=== PATIENT | female | born 1985 | race American Indian/Alaskan Native ===

== ENCOUNTER 2016-07-11 03:05 | Inpatient (IN) | payer MEDICAID ==
[2016-07-11] MEDS ORDERED: STADOL IV PRN (03:26)
[2016-07-11] MEDS ORDERED: POLYCILLIN/NS 2 GM/100 ML 2 GM/100 ML BAG IV ONE ×2 (03:26→03:39)
[2016-07-11] MEDS ORDERED: BRETHINE SUB-Q PRN (03:39)
[2016-07-11] MEDS ORDERED: SUBLIMAZE IV PRN (03:39)
[2016-07-11] MEDS ORDERED: ePHEDrine SULFATE IV PRN ×2 (03:39→10:00)
[2016-07-11] MEDS ORDERED: BRETHINE IVP PRN (03:39)
[2016-07-11] MEDS ORDERED: MINERAL OIL PO PRN (03:39)
[2016-07-11] MEDS ORDERED: PHENERGAN PO PRN (03:39)
[2016-07-11] MEDS ORDERED: XYLOCAINE 2% INFILTRATI ONE (03:39)
[2016-07-11] MEDS ORDERED: ZOFRAN IV PRN (03:39)
--- NOTE | 2016-07-11 03:39 | History and Physical Report ---
History of Present Illness Date of examination: 07/11/16 (SROM) Date of admission: 07/11/16 03:05 Chief complaint: SROM @ 0210, clear fluid History of present illness: EDC Confirmation: 07/06/2016 Past History : 4 Term Births: 1 Premature Births: 0 Living Children: 1 Para: 1 Mult. Births: 0 Prev : 0 Prev. attempt? 0 Aborta: 2 Elect. Ab: 2 Spont. Ab: 0 Ectopics: 0 # 1 Delivery date: 10/12/2006 Weeks Gestation: 38 labor: no Delivery type: Anesthesia type: epidural Delivery location: [facility] Infant Sex: Male weight: 6.10 Name: Wander # 2 Delivery date: 2013 Weeks Gestation: 8 Delivery type: EAB # 3 Delivery date: 2014 Weeks Gestation: 7 Delivery type: EAB Past Medical History: Reviewed history from 04/26/2015 and no changes required: Hypertension Past Surgical History: Reviewed history from 06/09/2013 and no changes required: Negative Past Surgical History Past Medical History Abnormal PAP: negative YOBANI Exposure: negative Infertility: negative Uterine Anomaly: negative Uterine Surgery (not C/S): negative Other Gynecologic Problems: negative Social Hx: Patient is single Infection History Hx of STD: none HIV Risk Eval: low risk Hepatitis B Risk Eval: low risk Personal hx. of genital herpes: no Partner hx. of genital herpes: no Rash, Viral, or Febrile illness since last LMP? no Varicella/Chicken Pox Status: Previous Disease TB Risk: no Genetic History Congenital Heart Defect: Mom: no Dad: no Mis Disease: Mom: no Dad: no Thalassemia Mom: no Dad: no Neural Tube Defect Mom: no Dad: no Down's Syndrome Mom: no Dad: no Christiano-Sachs Mom: no Dad: no Sickle Cell Disease/Trait Mom: no Dad: no Hemophilia Mom: no Dad: no Muscular Dystrophy Mom: no Dad: no Cystic Fibrosis Mom: no Dad: no [place] Chorea Mom: no Dad: no Mental Retardation Mom: no Dad: no Fragile X Mom: no Dad: no Other Genetic/Chromosomal Disorder Mom: no Dad: no Child w/other defect Mom: no Dad: no Enviromental Exposures Xray Exposure: no Medication, drug, or alcohol use since LMP: no Chemical/Other Exposure: no Exposure to Cat Liter: no Hx of Parvovirus (Fifth Disease): no Occupational Exposure to Children: none Active Medications: None Current Allergies: No known allergies Past History Past Medical History: no pertinent history - Obstetrical History Expected Date of Delivery: 07/06/16 Actual Gestation: 40 Week(s) 5 Day(s) : 4 Para: 1 Hx # Term Pregnancies: 1 Number of Pregnancies: 0 Spontaneous Abortions: 0 Induced : 2 Medications and Allergies Allergies Allergy/AdvReac Type Severity Reaction Status Date / Time No Known Allergies Allergy Verified 02/06/16 10:21 Home Medications Medication Instructions Recorded Confirmed Last Taken Type No Known Home Medications [No 07/11/16 07/11/16 Unknown History Reported Home Medications] Active Meds: Active Medications Butorphanol Tartrate (Stadol) 2 mg IV Q2H PRN PRN Reason: Labor Pain Lactated Ringer's (Lactated Ringers) 1,000 mls @ 125 mls/hr IV DIRECT CESAR Ampicillin Sodium (Polycillin/Ns 2 Gm/100 Ml) 2 gm in 100 mls @ 100 mls/hr IV ONCE ONE Stop: 07/11/16 04:25 Ampicillin Sodium (Polycillin/Ns 1 Gm/50 Ml) 1 gm in 50 mls @ 100 mls/hr IV Q4HR CESAR PRN Reason: Protocol Review of Systems All systems: negative - Vital Signs Vital signs: Vital Signs Pulse Pulse Ox 108 H 99 07/11/16 03:06 07/11/16 03:06 Temp Pulse Resp BP Pulse Ox 110 H 98 07/11/16 03:31 07/11/16 03:31 - Physical Exam Breasts: Positive: normal Lungs: Positive: Clear to auscultation, Normal air movement Abdomen: Positive: normal appearance, soft Genitourinary (Female): Positive: normal external genitalia, normal perenium Vulva: both: normal Vagina: Positive: other (srom - clear) Uterus: Positive: normal size Anus/Rectum: Positive: normal perianal skin Extremities: Positive: normal - Obstetrical FHR: auscultation normal, category 1 Uterine Contraction Monitor Mode: External Cervical Dilatation: 3 Cervical Effacement Percentage: 50 station: -4 Uterine Tone Measurement Phase: Resting Results Result Diagrams: 07/11/16 03:00 All other labs normal. Assessment and Plan 30y/o admitted for SROM @ 40+5, GBS +. Orders in EMR. will start pit to augment if needed. 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
[2016-07-11] MEDS: LACTATED RINGERS 1,000 ML IV SCH ×3 (03:59→10:11)
[2016-07-11] MEDS ORDERED: LACTATED RINGERS 1,000 ML IV SCH ×2 (04:00→15:00)
[2016-07-11] MEDS ORDERED: PITOCin/NS 20 UNIT/1000ML DRIP 20 UNITS/1,000 ML BAG IV SCH ×3 (04:00→17:00)
[2016-07-11 04:31] LABS: Basophils % (Auto) 0.4 % (0.0-1.8); Eosinophils % (Auto) 0.6 % (0.0-4.3); Hematocrit 29.9 % (30.3-42.9); Hemoglobin 9.1 gm/dl (10.1-14.3); Mean Corpuscular HGB Conc 30 % (30-34); Mean Corpuscular Volume 75 fl (79-97); Platelet Count 253 K/mm3 (140-440); Red Blood Count 3.97 M/mm3 (3.65-5.03); Red Cell Distribution Width 18.9 % (13.2-15.2); White Blood Count 11.9 K/mm3 (4.5-11.0)
[2016-07-11 04:34] LABS: Mean Corpuscular Hemoglobin 23 pg (28-32)
[2016-07-11] MEDS ORDERED: PITOCin/NS 30 UNIT/500ML 30 UNITS/500 ML BAG IV SCH (06:00)
[2016-07-11] MEDS ORDERED: POLYCILLIN/NS 1 GM/50 ML 1 GM/50 ML BAG IV SCH (06:00)
--- NOTE | 2016-07-11 06:14 | Progress Note ---
Assessment and Plan Pt is very anxious about deliver. It has been 10 years since she delivered. Her first child weighed 6+ pounds. This baby's EFW is 8 pounds. Discussed pt's concerns. Pt is not request section. Explained we will watch labor progression and if any concerns will discuss with her. Pt agrees. "I want a normal delivery." Plan to start pitocin @ 0700 per protocol. Second dose of ampicillin due 0800. Re-eval as needed. Will make aware of pt's concerns. Subjective - Subjective Date of service: 07/11/16 (pt expressing concerns about "getting the baby out") Principal diagnosis: IUP @ 40w5d; SROM Patient reports: movement normal Objective - Vital Signs Vital Signs: Vital Signs - 12hr 07/11/16 07/11/16 07/11/16 03:05 03:06 03:11 Temperature 96.9 F L Pulse Rate 108 H 119 H Respiratory 18 Rate Blood Pressure 129/75 [Left Arm] O2 Sat by Pulse 98 99 98 Oximetry 07/11/16 07/11/16 07/11/16 03:16 03:21 03:26 Temperature Pulse Rate 110 H 104 H 109 H Respiratory Rate Blood Pressure [Left Arm] O2 Sat by Pulse 98 99 98 Oximetry 07/11/16 07/11/16 07/11/16 03:31 03:36 03:41 Temperature Pulse Rate 110 H 107 H 105 H Respiratory Rate Blood Pressure [Left Arm] O2 Sat by Pulse 98 99 98 Oximetry 07/11/16 07/11/16 07/11/16 03:46 03:51 03:56 Temperature Pulse Rate 102 H 101 H 103 H Respiratory Rate Blood Pressure [Left Arm] O2 Sat by Pulse 98 97 98 Oximetry 07/11/16 07/11/16 07/11/16 04:01 04:06 04:11 Temperature Pulse Rate 111 H 98 H 113 H Respiratory Rate Blood Pressure [Left Arm] O2 Sat by Pulse 98 98 98 Oximetry - Exam Breasts: deferred Cardiovascular: Regular rate Lungs: Normal air movement Abdomen: Present: normal appearance, soft. Absent: distention, tenderness Uterus: Present: normal FHR: auscultation normal, category 1 Uterine Contraction Monitor Mode: External Cervical Dilatation: 3 Cervical Effacement Percentage: 50 station: -4 Uterine Contraction Pattern: Irregular Uterine Contraction Intensity: Mild Extremities: edema Deep Tendon Reflex Grade: Normal +2 - Labs Labs: Abnormal Labs 07/11/16 03:00 WBC 11.9 H Hgb 9.1 L Hct 29.9 L MCV 75 L MCH 23 L RDW 18.9 H Lymph % (Auto) 10.5 L [place] % (Auto) 9.8 H [place] # 1.2 H Seg Neutrophils % 78.7 H Seg Neutrophils # 9.4 H Laboratory Results - last 24 hr 07/11/16 07/11/16 03:00 03:00 WBC 11.9 H RBC 3.97 Hgb 9.1 L Hct 29.9 L MCV 75 L MCH 23 L MCHC 30 RDW 18.9 H Plt Count 253 Lymph % (Auto) 10.5 L [place] % (Auto) 9.8 H Eos % (Auto) 0.6 Baso % (Auto) 0.4 Lymph # 1.3 [place] # 1.2 H Eos # 0.1 Baso # 0.0 Seg Neutrophils % 78.7 H Seg Neutrophils # 9.4 H Blood Type O POSITIVE Antibody Screen TNR LYDIA Antibody Screen Negative
[2016-07-11] MEDS: PITOCin/NS 30 UNIT/500ML 30 UNITS/500 ML BAG IV SCH ×5 (07:35→14:12)
--- NOTE | 2016-07-11 08:07 | Admit Criteria Form ---
Admission Criteria Documentation: OBSTETRIC AND GYNECOLOGIC DISEASE GRG Clinical Indications for Admission to Inpatient Care (Place 'X' for any and all applicable criteria): Hospital admission is needed for appropriate care of the patient because of 1 or more of the following (1)(2)(3): [ ]I. Hemodynamic instability, as indicated by 1 or more of the following (1)( 2)(3)(4)(5): [ ]a) Vital signs or other findings not as expected for chronic patient condition or baseline [ ]b) Instability indicated by 1 or more of the following: [ ]i) Hypotension [ ]ii) Symptomatic tachycardia unresponsive to treatment (eg, analgesia, fluids, sedation as indicated) [ ]iii) Inadequate perfusion indicated by 1 or more of the following: [ ]A. Lactic acidosis (greater than 2 mmol/ L) [ ]B. New abnormal capillary refill ( greater than 3 seconds) [ ]C. Reduced urine output [ ]D. New altered mental status [ ]iv) Orthostatic vital sign changes unresponsive to treatment (eg, fluids) [ ]v) Multiple IV fluid boluses required to maintain adequate blood pressure or perfusion [ ]vi) IV inotropic or vasopressor medication required to maintain adequate blood pressure or perfusion [ ]II. Obstetric infection requiring hospitalization indicated by 1 or more of the following(13)(14): [ ]a) Chorioamnionitis [ ]b) Endometritis (except mild endometritis) [ ]c) Pelvic abscess [ ]d) Peritonitis [ ]e) Septic pelvic thrombophlebitis [ ]III. Amniotic fluid or pulmonary embolism(4)(5)(6) [ ]IV. Suspected peritonitis or ectopic requiring monitoring beyond scope of 24 hours or observation care(7)(8) [ ]V. compromise requiring hospitalization indicated by ALL of the following(9)(10): [ ]a) compromise indicated by 1 or more of the following(11): [ ]i) Abnormal heart rate monitoring [ ]ii) Abnormal contraction stress test [ ]iii) Abnormal biophysical profile [ ]iv) Abnormal Doppler flow in vessels (ie, Doppler velocimetry) (12) [ ]b) Persistence of compromise indicators during evaluation and observation monitoring [ ]. Ovarian hyperstimulation syndrome requiring hospitalization[A] indicated by ALL of the following(15): [ ]a) Recent ovarian stimulation with gonadotropins, or evidence on ultrasound of spontaneous emergence of large number of ovarian follicles [ ]b) Evidence of severe ovarian hyperstimulation syndrome indicated by 1 or more of the following: [ ]i) Abdominal pain unresponsive to oral therapy [ ]ii) Acute respiratory distress syndrome [ ]iii) Electrolyte imbalance ( eg, hyponatremia, hyperkalemia) [ ]iv) Elevated liver enzymes [ ]v) Evidence of thromboembolism [ ]vi) Hemoconcentration (hematocrit greater than 45 % (0.45)) [ ]vii) Inability to maintain oral intake adequate to prevent hemoconcentration [ ]viii) Marked hypotension from baseline (eg, SBP 20 mmHg below patients usual pressure) [ ]ix) Oliguria or anuria [ ]x) Ovarian torsion [ ]xi) Pleural or pericardial effusion on x-ray or echocardiogram [ ]xii) Rapid increase in serum creatinine to greater than 1.2 mg/dL (106 micromoles/L) or creatinine clearance less than 50 mL/min/1.73m2 (0.84 mL/ sec/1.73m2) [ ]xiii) Ruptured ovarian cyst with hemorrhage [ ]xiv) Severe abdominal pain or peritoneal signs [ ]xv) Tense ascites that cannot be managed with paracentesis in outpatient setting [ ]VII.Pelvic infection requiring hospitalization indicated by 1 or more of the following (16): [ ]a) Outpatient treatment has failed or is not appropriate (eg, inpatient monitoring required) [ ]b) Pelvic abscess [ ]c) Surgical emergency cannot be excluded (eg, rigid abdomen) [ ]d) Vomiting precluding outpatient and observation care management VIII. loss complications requiring inpatient medical treatment indicated by 1 or more of the following (4)(7)(9): [ ]a) Fever [ ]b) Peritonitis [ ]c) Sepsis [ ]d) Severe abdominal pain [ ]IX. or patient requiring monitoring for severe heart failure, pulmonary disease, or other comorbid condition (eg, peripartum cardiomyopathy) (4)(17) [X ]X. patient with rupture of membranes requiring hospitalization indicated by ANY ONE of the following: [ ]a) Chorioamnionitis, cloudy amniotic fluid, or other evidence of infection [X ]b) compromise or other need for monitoring (11) [ ]c) Gestation longer than 23 weeks and ANY ONE of the following: [ ]i) Abnormal (noncephalic) presentation [ ]ii) Inadequate home environment (eg, home too far from hospital, unable to rapidly return to hospital) [ ]d) Temperature greater than 100.4 degrees F (38 degrees C)( oral) [ ]e) Threatened labor requiring monitoring beyond scope (eg, over 24 hours) of observation Care [ ] XI. complications, including severe lacerations, infections, or retained placenta (19) [ ] XII.Uterine bleeding with high-risk features indicated by ANY ONE of the following (4): [ ]a) Active major hemorrhage (eg, hemorrhage) [ ]b) Coagulopathy with active bleeding [ ]c) Gestational trophoblastic disease (eg, molar ) (20 ) [ ]d) (longer than 23 weeks) and ANY ONE of the following: [ ]i) Pain [ ]ii) Placental abruption, known or suspected [ ]iii) Placenta accrete, known or suspected(21) [ ]iv) Placenta previa, known or suspected [ ]v) Vasa previa [ ]e) Severe anemia [ ]XIII. Obstetric or Gynecologic Disease, condition or symptom for which ANY ONE of the following: [ ]a) Emergency and observation care have failed or are not considered appropriate ( Also use General Criteria: Observation Care Criteria as appropriate) [ ]b) Presence of a General Admission Criteria or Pediatric General Admission Criteria The original [facility] content created by [facility] has been revised. The portions of the content which have been revised are identified through the use of italic text or in bold, and [facility] has neither reviewed nor approved the modified material.All other unmodified content is copyright [facility]. Please see references footnoted in the original [facility] edition 2016 Admission Criteria Met: Yes
[2016-07-11] MEDS: POLYCILLIN/NS 1 GM/50 ML 1 GM/50 ML BAG IV SCH ×2 (08:16→12:11)
[2016-07-11] MEDS ORDERED: ePHEDrine SULFATE ONE ×2 (09:40→15:19)
--- NOTE | 2016-07-11 09:46 | Anesthesia Consultation ---
Anesthesia Consult and Med Hx Date of service: 07/11/16 - Airway Anesthetic Teeth Evaluation: Good ROM Head & Neck: Adequate Mental/Hyoid Distance: Adequate Mallampati Class: Class II Intubation Access Assessment: Probably Good - Pre-Operative Health Status ASA Pre-Surgery Classification: ASA3 Proposed Anesthetic Plan: Epidural, Spinal - Pulmonary Hx Asthma: No COPD: No Hx Pneumonia: No - Cardiovascular System Hx Hypertension: No - Central Nervous System Hx Seizures: No Hx Psychiatric Problems: No - Endocrine Hx Renal Disease: No Hx End Stage Renal Disease: No Hx Hypothyroidism: No Hx Hyperthyroidism: Yes - Hematic Hx Anemia: No Hx Sickle Cell Disease: No - Other Systems Hx Alcohol Use: No Hx Obesity: Yes (Morbid obesity BMI 40.9)
[2016-07-11] MEDS ORDERED: fentaNYL-BUPIV 2 MCG/ML-0.125% 200 MCG/100 ML BAG EPIDURAL SCH (10:00)
[2016-07-11] MEDS ORDERED: NARCAN 2 MG/2 ML IV PRN (10:30)
[2016-07-11] MEDS ORDERED: NACL 0.9% 1000 ML 1,000 ML ONE (14:20)
[2016-07-11] MEDS ORDERED: REGLAN ONE (14:24)
[2016-07-11] MEDS ORDERED: BICITRA ONE (14:24)
[2016-07-11] MEDS ORDERED: ANCEF/STERILE WATER 2 GM/20 ML 2 GM/20 ML SYRINGE IV ONE (14:25)
[2016-07-11] MEDS ORDERED: PEPCID IV ONE ×2 (14:25→14:29)
[2016-07-11] MEDS ORDERED: REGLAN IV ONE (14:29)
[2016-07-11] MEDS ORDERED: BICITRA PO SCH (14:35)
--- NOTE | 2016-07-11 14:35 | Progress Note ---
Assessment and Plan intolerance to labor. Remote from delivery. here. Decision to go for section. SVE no chg. Pt consented. Risks discussed with pt and family. Subjective - Subjective Date of service: 07/11/16 (prolong decel; remote from delivery) Principal diagnosis: IUP @ 40w5d; SROM Patient reports: movement normal Objective - Vital Signs Vital Signs: Vital Signs - 12hr 07/11/16 07/11/16 07/11/16 03:05 03:06 03:11 Temperature 96.9 F L Pulse Rate 108 H 119 H Pulse Rate [ From Monitor] Respiratory 18 Rate Blood Pressure Blood Pressure 129/75 [Left Arm] O2 Sat by Pulse 98 99 98 Oximetry 07/11/16 07/11/16 07/11/16 03:16 03:21 03:26 Temperature Pulse Rate 110 H 104 H 109 H Pulse Rate [ From Monitor] Respiratory Rate Blood Pressure Blood Pressure [Left Arm] O2 Sat by Pulse 98 99 98 Oximetry 07/11/16 07/11/16 07/11/16 03:31 03:36 03:41 Temperature Pulse Rate 110 H 107 H 105 H Pulse Rate [ From Monitor] Respiratory Rate Blood Pressure Blood Pressure [Left Arm] O2 Sat by Pulse 98 99 98 Oximetry 07/11/16 07/11/16 07/11/16 03:46 03:51 03:56 Temperature Pulse Rate 102 H 101 H 103 H Pulse Rate [ From Monitor] Respiratory Rate Blood Pressure Blood Pressure [Left Arm] O2 Sat by Pulse 98 97 98 Oximetry 07/11/16 07/11/16 07/11/16 04:01 04:06 04:11 Temperature Pulse Rate 111 H 98 H 113 H Pulse Rate [ From Monitor] Respiratory Rate Blood Pressure Blood Pressure [Left Arm] O2 Sat by Pulse 98 98 98 Oximetry 07/11/16 07/11/16 07/11/16 07:24 07:25 07:36 Temperature 96.9 F L Pulse Rate 108 H 98 H Pulse Rate [ 108 H From Monitor] Respiratory 18 Rate Blood Pressure 121/73 123/75 Blood Pressure 121/73 [Left Arm] O2 Sat by Pulse Oximetry 07/11/16 07/11/16 07/11/16 07:38 07:43 07:48 Temperature Pulse Rate 95 H 90 91 H Pulse Rate [ From Monitor] Respiratory Rate Blood Pressure Blood Pressure [Left Arm] O2 Sat by Pulse 100 100 100 Oximetry 07/11/16 07/11/16 07/11/16 07:53 07:58 08:03 Temperature Pulse Rate 95 H 96 H 101 H Pulse Rate [ From Monitor] Respiratory Rate Blood Pressure Blood Pressure [Left Arm] O2 Sat by Pulse 100 100 100 Oximetry 07/11/16 07/11/16 07/11/16 08:08 08:13 08:18 Temperature Pulse Rate 90 92 H 79 Pulse Rate [ From Monitor] Respiratory Rate Blood Pressure Blood Pressure [Left Arm] O2 Sat by Pulse 99 97 97 Oximetry 07/11/16 07/11/16 07/11/16 08:23 08:28 08:33 Temperature Pulse Rate 92 H 83 85 Pulse Rate [ From Monitor] Respiratory Rate Blood Pressure Blood Pressure [Left Arm] O2 Sat by Pulse 99 100 100 Oximetry 07/11/16 07/11/16 07/11/16 08:38 08:43 08:48 Temperature Pulse Rate 79 82 84 Pulse Rate [ From Monitor] Respiratory Rate Blood Pressure Blood Pressure [Left Arm] O2 Sat by Pulse 100 100 100 Oximetry 07/11/16 07/11/16 07/11/16 08:53 08:58 09:03 Temperature Pulse Rate 86 85 86 Pulse Rate [ From Monitor] Respiratory Rate Blood Pressure Blood Pressure [Left Arm] O2 Sat by Pulse 100 100 100 Oximetry 07/11/16 07/11/16 07/11/16 09:08 09:13 09:48 Temperature Pulse Rate 91 H 91 H 95 H Pulse Rate [ From Monitor] Respiratory Rate Blood Pressure Blood Pressure [Left Arm] O2 Sat by Pulse 100 100 100 Oximetry 07/11/16 07/11/16 07/11/16 09:49 09:53 09:56 Temperature Pulse Rate 101 H 97 H 93 H Pulse Rate [ From Monitor] Respiratory Rate Blood Pressure 131/75 127/79 Blood Pressure [Left Arm] O2 Sat by Pulse 100 Oximetry 07/11/16 07/11/16 07/11/16 09:58 09:59 10:00 Temperature Pulse Rate 89 53 L 98 H Pulse Rate [ From Monitor] Respiratory Rate Blood Pressure 124/69 134/70 Blood Pressure [Left Arm] O2 Sat by Pulse 100 79 L Oximetry 07/11/16 07/11/16 07/11/16 10:02 10:03 10:04 Temperature Pulse Rate 91 H 92 H 92 H Pulse Rate [ From Monitor] Respiratory Rate Blood Pressure 134/74 135/78 Blood Pressure [Left Arm] O2 Sat by Pulse 99 Oximetry 07/11/16 07/11/16 07/11/16 10:06 10:08 10:10 Temperature Pulse Rate 91 H 96 H 94 H Pulse Rate [ From Monitor] Respiratory Rate Blood Pressure 126/72 131/73 121/74 Blood Pressure [Left Arm] O2 Sat by Pulse 97 Oximetry 07/11/16 07/11/16 07/11/16 10:12 10:13 10:14 Temperature Pulse Rate 100 H 96 H 92 H Pulse Rate [ From Monitor] Respiratory Rate Blood Pressure 123/73 126/69 Blood Pressure [Left Arm] O2 Sat by Pulse 99 Oximetry 07/11/16 07/11/16 07/11/16 10:16 10:18 10:20 Temperature Pulse Rate 96 H 95 H 91 H Pulse Rate [ From Monitor] Respiratory Rate Blood Pressure 130/74 127/74 125/71 Blood Pressure [Left Arm] O2 Sat by Pulse 99 Oximetry 07/11/16 07/11/16 07/11/16 10:22 10:23 10:24 Temperature Pulse Rate 91 H 94 H 91 H Pulse Rate [ From Monitor] Respiratory Rate Blood Pressure 129/73 127/72 Blood Pressure [Left Arm] O2 Sat by Pulse 100 Oximetry 07/11/16 07/11/16 07/11/16 10:26 10:28 10:32 Temperature Pulse Rate 111 H 96 H 100 H Pulse Rate [ From Monitor] Respiratory Rate Blood Pressure 129/70 Blood Pressure [Left Arm] O2 Sat by Pulse 98 62 L Oximetry 07/11/16 07/11/16 07/11/16 10:33 10:34 10:36 Temperature Pulse Rate 85 88 87 Pulse Rate [ From Monitor] Respiratory Rate Blood Pressure 119/58 121/57 Blood Pressure [Left Arm] O2 Sat by Pulse 100 Oximetry 07/11/16 07/11/16 07/11/16 10:38 10:43 10:45 Temperature Pulse Rate 97 H 112 H 112 H Pulse Rate [ From Monitor] Respiratory Rate Blood Pressure 119/70 106/55 Blood Pressure [Left Arm] O2 Sat by Pulse 100 100 Oximetry 07/11/16 07/11/16 07/11/16 10:48 10:53 10:58 Temperature Pulse Rate 80 101 H 84 Pulse Rate [ From Monitor] Respiratory Rate Blood Pressure Blood Pressure [Left Arm] O2 Sat by Pulse 100 100 100 Oximetry 07/11/16 07/11/16 07/11/16 11:02 11:03 11:08 Temperature Pulse Rate 100 H 121 H 97 H Pulse Rate [ From Monitor] Respiratory Rate Blood Pressure 105/60 Blood Pressure [Left Arm] O2 Sat by Pulse 100 100 Oximetry 07/11/16 07/11/16 07/11/16 11:13 11:16 11:18 Temperature Pulse Rate 122 H 83 104 H Pulse Rate [ From Monitor] Respiratory Rate Blood Pressure 116/67 Blood Pressure [Left Arm] O2 Sat by Pulse 100 100 Oximetry 07/11/16 07/11/16 07/11/16 11:23 11:28 11:30 Temperature Pulse Rate 102 H 112 H 112 H Pulse Rate [ From Monitor] Respiratory Rate Blood Pressure 107/60 Blood Pressure [Left Arm] O2 Sat by Pulse 100 100 Oximetry 07/11/16 07/11/16 07/11/16 11:33 11:38 11:43 Temperature Pulse Rate 93 H 87 101 H Pulse Rate [ From Monitor] Respiratory Rate Blood Pressure Blood Pressure [Left Arm] O2 Sat by Pulse 100 100 100 Oximetry 07/11/16 07/11/16 07/11/16 11:46 11:48 11:53 Temperature Pulse Rate 88 90 80 Pulse Rate [ From Monitor] Respiratory Rate Blood Pressure 118/70 Blood Pressure [Left Arm] O2 Sat by Pulse 100 100 Oximetry 07/11/16 07/11/16 07/11/16 11:58 12:01 12:03 Temperature Pulse Rate 85 103 H 83 Pulse Rate [ From Monitor] Respiratory Rate Blood Pressure 108/64 Blood Pressure [Left Arm] O2 Sat by Pulse 100 100 Oximetry 07/11/16 07/11/16 07/11/16 12:08 12:09 12:13 Temperature 97.1 F L Pulse Rate 92 H 117 H Pulse Rate [ 87 From Monitor] Respiratory 18 Rate Blood Pressure Blood Pressure 108/64 [Left Arm] O2 Sat by Pulse 100 100 100 Oximetry 07/11/16 07/11/16 07/11/16 12:17 12:18 12:23 Temperature Pulse Rate 88 101 H 88 Pulse Rate [ From Monitor] Respiratory Rate Blood Pressure 121/66 Blood Pressure [Left Arm] O2 Sat by Pulse 100 100 Oximetry 07/11/16 07/11/16 07/11/16 12:28 12:31 12:33 Temperature Pulse Rate 84 96 H 95 H Pulse Rate [ From Monitor] Respiratory Rate Blood Pressure 117/71 Blood Pressure [Left Arm] O2 Sat by Pulse 100 100 Oximetry 07/11/16 07/11/16 07/11/16 12:38 12:43 12:47 Temperature Pulse Rate 87 122 H 86 Pulse Rate [ From Monitor] Respiratory Rate Blood Pressure 119/69 Blood Pressure [Left Arm] O2 Sat by Pulse 100 100 Oximetry 07/11/16 07/11/16 07/11/16 12:48 12:53 12:58 Temperature Pulse Rate 88 91 H 103 H Pulse Rate [ From Monitor] Respiratory Rate Blood Pressure Blood Pressure [Left Arm] O2 Sat by Pulse 100 100 100 Oximetry 07/11/16 07/11/16 07/11/16 13:01 13:03 13:08 Temperature Pulse Rate 96 H 92 H 95 H Pulse Rate [ From Monitor] Respiratory Rate Blood Pressure 118/61 Blood Pressure [Left Arm] O2 Sat by Pulse 100 100 Oximetry 07/11/16 07/11/16 07/11/16 13:13 13:18 13:23 Temperature Pulse Rate 86 102 H 115 H Pulse Rate [ From Monitor] Respiratory Rate Blood Pressure Blood Pressure [Left Arm] O2 Sat by Pulse 100 100 100 Oximetry 07/11/16 07/11/16 07/11/16 13:28 13:31 13:33 Temperature Pulse Rate 115 H 86 117 H Pulse Rate [ From Monitor] Respiratory Rate Blood Pressure 124/72 Blood Pressure [Left Arm] O2 Sat by Pulse 100 100 Oximetry 07/11/16 07/11/16 07/11/16 13:38 13:43 13:46 Temperature Pulse Rate 84 82 90 Pulse Rate [ From Monitor] Respiratory Rate Blood Pressure 119/68 Blood Pressure [Left Arm] O2 Sat by Pulse 100 100 Oximetry 07/11/16 07/11/16 07/11/16 13:48 13:53 13:58 Temperature Pulse Rate 103 H 82 92 H Pulse Rate [ From Monitor] Respiratory Rate Blood Pressure Blood Pressure [Left Arm] O2 Sat by Pulse 100 100 100 Oximetry 07/11/16 07/11/16 07/11/16 14:01 14:03 14:08 Temperature Pulse Rate 94 H 105 H 95 H Pulse Rate [ From Monitor] Respiratory Rate Blood Pressure 117/67 Blood Pressure [Left Arm] O2 Sat by Pulse 100 100 Oximetry 07/11/16 07/11/16 07/11/16 14:13 14:16 14:18 Temperature Pulse Rate 95 H 93 H 83 Pulse Rate [ From Monitor] Respiratory Rate Blood Pressure 126/67 Blood Pressure [Left Arm] O2 Sat by Pulse 100 89 100 Oximetry 07/11/16 07/11/16 14:23 14:28 Temperature Pulse Rate 106 H 126 H Pulse Rate [ From Monitor] Respiratory Rate Blood Pressure Blood Pressure [Left Arm] O2 Sat by Pulse 100 100 Oximetry - Exam Breasts: deferred Cardiovascular: Regular rate Lungs: Normal air movement Abdomen: Present: normal appearance, soft. Absent: distention, tenderness Uterus: Present: normal FHR: auscultation normal, category 2 Uterine Contraction Monitor Mode: Internal Cervical Dilatation: 5 (caput noted) Cervical Effacement Percentage: 90 station: -1 Uterine Contraction Pattern: Regular Uterine Contraction Intensity: Moderate Extremities: edema Deep Tendon Reflex Grade: Normal +2 - Labs Labs: Abnormal Labs 07/11/16 03:00 WBC 11.9 H Hgb 9.1 L Hct 29.9 L MCV 75 L MCH 23 L RDW 18.9 H Lymph % (Auto) 10.5 L [place] % (Auto) 9.8 H [place] # 1.2 H Seg Neutrophils % 78.7 H Seg Neutrophils # 9.4 H Laboratory Results - last 24 hr 07/11/16 07/11/16 07/11/16 03:00 03:00 03:00 WBC 11.9 H RBC 3.97 Hgb 9.1 L Hct 29.9 L MCV 75 L MCH 23 L MCHC 30 RDW 18.9 H Plt Count 253 Lymph % (Auto) 10.5 L [place] % (Auto) 9.8 H Eos % (Auto) 0.6 Baso % (Auto) 0.4 Lymph # 1.3 [place] # 1.2 H Eos # 0.1 Baso # 0.0 Seg Neutrophils % 78.7 H Seg Neutrophils # 9.4 H RPR Nonreactive Blood Type O POSITIVE Antibody Screen TNR LYDIA Antibody Screen Negative
[2016-07-11] MEDS ORDERED: XYLOCAINE MPF 2% ONE ×3 (14:51→15:49)
[2016-07-11] MEDS ORDERED: ANCEF/STERILE WATER 2 GM/20 ML 2 GM/20 ML SYRINGE IV NR (15:00)
[2016-07-11] MEDS ORDERED: WATER FOR IRRIG STERILE IR ONE (15:05)
[2016-07-11] MEDS ORDERED: NACL 0.9% IR ONE (15:05)
[2016-07-11] MEDS ORDERED: ZOFRAN ONE (15:30)
[2016-07-11] MEDS ORDERED: MORPHINE ONE ×2 (15:45)
[2016-07-11] MEDS ORDERED: WATER FOR INJ (PF) 10 ML ONE (15:48)
[2016-07-11] MEDS ORDERED: TORADOL IV PRN (16:13)
[2016-07-11] MEDS ORDERED: TUCKS PAD TP PRN (16:13)
[2016-07-11] MEDS ORDERED: NARCAN 0.4 MG/1 ML IV PRN (16:13)
[2016-07-11] MEDS ORDERED: LANSINOH TP PRN (16:13)
--- NOTE | 2016-07-11 16:24 | Operative Report ---
Operative Report Operative Report: Date of procedure: 07/11/2016 Pre-operative diagnosis: Intrauterine at 40 weeks and nonreassuring tracing remote from vaginal delivery Post-operative diagnosis: Same Procedure name(s): Primary low transverse section Surgeon: Jeet North MD Senior [employer] Specialist: Mari Brown certified nurse shooting gallery operator Anesthesia: Epidural EBL: 1200 mL Complications: Laceration of left uterine artery Findings: Patient with normal uterus tubes and ovaries bilaterally a male infant weight 8 lbs. 7 oz. Apgars 9 at 1 minute and 9 at 5 minutes. Specimen(s): None Procedure: The patient was brought to the operating room. A spinal was placed without any complications. She was then placed in left lateral tilt. Prepped and draped in the usual sterile manner. After testing for adequate anesthesia level, a Pfannenstiel incision was made. This incision was taken down to the fascia. The fascia was then nicked in the midline. This incision was extended out laterally with Main scissors. The fascia was then sharply and bluntly from the underlying rectus muscles. The rectus muscles were bluntly and sharply . The peritoneum was then entered with the hydraulic hammer operator's fingers. This incision was spread vertically with care not to damage the bladder below. The bladder flap was then formed sharply and bluntly with Metzenbaum scissors. Bladder blade was placed. A transverse incision was made in lower uterine segment. This incision was extended laterally with the operators fingers. The amniotic sac was then entered bluntly with the hydraulic hammer operator' s fingers. The infant was delivered from the vertex position. Bulb suction on the mother's abdomen. Cord was double clamped and cut. The was then passed to the nursery personnel who were in attendance. The above scores were given by the nursery personnel. The placenta was then bluntly removed. The uterus was then externalized and wiped clean the remaining products. Laceration was noted and the left uterine artery was repaired with a O'Kent stitch. The uterine incision was closed in layers. The first incision was closed in a locking manner using 0 Vicryl. This was followed by imbricating stitch also with 0 Vicryl. This closure was hemostatic. The bladder flap was copiously irrigated and found to be hemostatic. The pelvis was copiously irrigated and found to be hemostatic. The uterus was then placed back to the patient's abdomen. Surgicel was placed along the uterine incision. The retractors were removed. The rectus muscles were inspected and found to be hemostatic. The fascia was then closed in a running manner using 0 Vicryl. This incision was hemostatic irrigation Bovie. The skin was reapproximated with 4-0 Vicryl subcuticularly. The patient tolerated procedure well. Her urine was clear. The was admitted to the well baby nursery. The patient was accompanied to recovery room in good condition. Instrument count correct 3.
[2016-07-11] MEDS ORDERED: D5LR 1,000 ML IV SCH (17:00)
[2016-07-11] MEDS ORDERED: SODIUM CHLORIDE FLUSH SYRINGE 10 ML IV NR (17:00)
--- NOTE | 2016-07-11 18:27 | Post Anesthesia Evaluation ---
- Post Anesthesia Evaluation Patient Participated: Yes Airway Patent: Yes Stable Respiratory Function: Yes Nausea/Vomiting: No Temp > 96.8F: Yes Pain Manageable: Yes Adequeate Hydration: Yes Anesthesia Complications: No Block Receding Appropriately: Yes Patient on Ventilator: No
[2016-07-11] MEDS ORDERED: MORPHINE IV PRN ×2 (18:28)
[2016-07-11] MEDS ORDERED: BENADRYL IV PRN (18:29)
[2016-07-11] MEDS: ANCEF/NS 1 GM/50 ML 1 GM/50 ML BAG IV SCH (23:27)
[2016-07-12] MEDS ORDERED: BOOSTRIX IM ONE (06:05)
[2016-07-12] MEDS: ANCEF/NS 1 GM/50 ML 1 GM/50 ML BAG IV SCH (06:24)
[2016-07-12 06:35] LABS: Hematocrit 23.2 % (30.3-42.9)
--- NOTE | 2016-07-12 07:13 | Progress Note ---
Assessment and Plan - Patient Problems (1) Anemia Current Visit: Yes Status: Chronic Qualifiers: Anemia type: iron deficiency Iron deficiency anemia type: inadequate dietary iron intake Vitamin B12 deficiency anemia type: V Folate deficiency anemia type: F Bone marrow failure anemia type: B Hemolytic anemia type: H Other causes of anemia: O Qualified Code(s): D50.8 - Other iron deficiency anemias Plan to address problem: Iron PO BID Repeat H&H this AM (2) delivery delivered Onset Date: 07/11/16 Current Visit: Yes Status: Acute Plan to address problem: pt voicing no c/o this AM VSS FF below umb Lochia small Dressing D&I H&H 7.0/ 23.2 chronic anemia Drop r/t blood loss from surgery Pt is asymptomatic PO iron ordered. Doing well s/p section. P: continue pathway H&H ordered for f/ u Adv diet and activity as tolerated. Subjective - Subjective Date of service: 07/12/16 (pt w/o complaint) Principal diagnosis: Day # 1 s/p section Patient reports: voiding normally, pain well controlled : doing well Objective - Vital Signs Latest vital signs: Vital Signs Temp Pulse Pulse Resp BP BP Pulse Ox 07/12/16 00:48 98.4 F 80 20 96/59 07/11/16 20:20 98.2 F 98 H 20 126/63 07/11/16 17:40 98 F 87 20 116/69 07/11/16 17:10 113 H 13 125/76 98 07/11/16 17:05 105 H 17 105/64 93 07/11/16 17:00 104 H 15 120/63 94 07/11/16 16:56 16 07/11/16 16:55 87 15 119/71 98 07/11/16 16:50 87 17 122/70 97 07/11/16 16:45 96 H 14 124/72 99 07/11/16 16:40 107 H 19 121/74 98 07/11/16 16:35 93 H 16 123/75 98 07/11/16 16:30 88 16 124/71 07/11/16 16:25 99 H 15 125/76 07/11/16 16:21 118 H 12 123/70 98 07/11/16 16:15 100 H 16 134/75 97 07/11/16 16:10 99 H 16 128/80 07/11/16 16:07 97.8 F 05 16:06 99 07/11/16 14:33 127 H 100 07/11/16 14:32 113 H 126/60 07/11/16 14:28 126 H 100 07/11/16 14:23 106 H 100 07/11/16 14:18 83 100 07/11/16 14:16 93 H 126/67 89 07/11/16 14:13 95 H 100 07/11/16 14:08 95 H 100 07/11/16 14:03 105 H 100 07/11/16 14:01 94 H 117/67 07/11/16 13:58 92 H 100 07/11/16 13:53 82 100 07/11/16 13:48 103 H 100 07/11/16 13:46 90 119/68 07/11/16 13:43 82 100 07/11/16 13:38 84 100 07/11/16 13:33 117 H 100 07/11/16 13:31 86 124/72 07/11/16 13:28 115 H 100 07/11/16 13:23 115 H 100 07/11/16 13:18 102 H 100 07/11/16 13:13 86 100 07/11/16 13:08 95 H 100 07/11/16 13:03 92 H 100 07/11/16 13:01 96 H 118/61 07/11/16 12:58 103 H 100 07/11/16 12:53 91 H 100 07/11/16 12:48 88 100 07/11/16 12:47 86 119/69 07/11/16 12:43 122 H 100 07/11/16 12:38 87 100 07/11/16 12:33 95 H 100 07/11/16 12:31 96 H 117/71 07/11/16 12:28 84 100 07/11/16 12:23 88 100 07/11/16 12:18 101 H 100 07/11/16 12:17 88 121/66 07/11/16 12:13 117 H 100 07/11/16 12:09 97.1 F L 87 18 108/64 100 07/11/16 12:08 92 H 100 07/11/16 12:03 83 100 07/11/16 12:01 103 H 108/64 05/17 11:58 85 100 05 11:53 80 100 07/11/16 11:48 90 100 07/11/16 11:46 88 118/70 07/11/16 11:43 101 H 100 07/11/16 11:38 87 100 07/11/16 11:33 93 H 100 07/11/16 11:30 112 H 107/60 07/11/16 11:28 112 H 100 07/11/16 11:23 102 H 100 07/11/16 11:18 104 H 100 07/11/16 11:16 83 116/67 07/11/16 11:13 122 H 100 07/11/16 11:08 97 H 100 07/11/16 11:03 121 H 100 07/11/16 11:02 100 H 105/60 07/11/16 10:58 84 100 07/11/16 10:53 101 H 100 07/11/16 10:48 80 100 07/11/16 10:45 112 H 106/55 07/11/16 10:43 112 H 119/70 100 07/11/16 10:38 97 H 100 07/11/16 10:36 87 121/57 07/11/16 10:34 88 119/58 07/11/16 10:33 85 100 07/11/16 10:32 100 H 62 L 07/11/16 10:28 96 H 98 07/11/16 10:26 111 H 129/70 07/11/16 10:24 91 H 127/72 07/11/16 10:23 94 H 100 07/11/16 10:22 91 H 129/73 07/11/16 10:20 91 H 125/71 07/11/16 10:18 95 H 127/74 99 07/11/16 10:16 96 H 130/74 07/11/16 10:14 92 H 126/69 07/11/16 10:13 96 H 99 07/11/16 10:12 100 H 123/73 07/11/16 10:10 94 H 121/74 07/11/16 10:08 96 H 131/73 97 07/11/16 10:06 91 H 126/72 07/11/16 10:04 92 H 135/78 07/11/16 10:03 92 H 99 07/11/16 10:02 91 H 134/74 07/11/16 10:00 98 H 134/70 07/11/16 09:59 53 L 79 L 07/11/16 09:58 89 124/69 100 07/11/16 09:56 93 H 127/79 07/11/16 09:53 97 H 100 07/11/16 09:49 101 H 131/75 07/11/16 09:48 95 H 100 07/11/16 09:13 91 H 100 07/11/16 09:08 91 H 100 07/11/16 09:03 86 100 07/11/16 08:58 85 100 07/11/16 08:53 86 100 07/11/16 08:48 84 100 07/11/16 08:43 82 100 07/11/16 08:38 79 100 07/11/16 08:33 85 100 07/11/16 08:28 83 100 07/11/16 08:23 92 H 99 07/11/16 08:18 79 97 07/11/16 08:13 92 H 97 07/11/16 08:08 90 99 07/11/16 08:03 101 H 100 07/11/16 07:58 96 H 100 07/11/16 07:53 95 H 100 07/11/16 07:48 91 H 100 07/11/16 07:43 90 100 07/11/16 07:38 95 H 100 07/11/16 07:36 98 H 123/75 07/11/16 07:25 96.9 F L 108 H 18 121/73 07/11/16 07:24 108 H 121/73 Intake and Output 07/11/16 07/12/16 07/12/16 22:59 06:59 14:59 Intake Total 820 170 Output Total 325 Balance 495 170 Intake: IV 700 50 ANCEF/NS 1 GM/50 ML 1 gm 50 In 50 ml @ 100 mls/hr IV Q8H [facility] Rx#:[id number] Oral 120 Intake, Free Water 120 Output: Urine 325 Other: Total, Intake Amount 120 Estimated Blood Loss 1,200 - Exam Breasts: Present: normal, Cardiovascular: Present: Regular rate Lungs: Present: Normal air movement Abdomen: Present: normal appearance, soft Uterus: Present: normal, fundal height below umbilicus Extremities: Present: edema Deep Tendon Reflex Grade: Normal +2 Incision: Present: dry, intact, dressed - Labs Labs: Abnormal lab results 07/12/16 Range/Units 05:40 Hgb 7.0 L (10.1-14.3) gm/dl Hct 23.2 L D (30.3-42.9) %
--- NOTE | 2016-07-12 08:14 | Progress Note ---
Subjective Date of service: 07/12/16 Principal diagnosis: Day # 1 s/p section Interval history: 1st POD after Patient is in the bed, relatively comfortable. Pain is mostly under control. Ambulated well. No residual neurological deficit. Some pruritus is managed with Benadryl. No anesthesia complications Objective - Constitutional Vitals: Vital Signs - 12hr 07/11/16 07/12/16 07/12/16 20:20 00:48 05:30 Temperature 98.2 F 98.4 F 97.5 F L Pulse Rate [ 98 H 80 93 H From Monitor] Respiratory 20 20 20 Rate Blood Pressure 126/63 96/59 114/64 [Left Arm] - Labs CBC & Chem 7: 07/12/16 05:40 Labs: Abnormal lab results 07/12/16 Range/Units 05:40 Hgb 7.0 L (10.1-14.3) gm/dl Hct 23.2 L D (30.3-42.9) %
[2016-07-12] MEDS ORDERED: VISTARIL PO PRN (09:00)
[2016-07-12] MEDS: PRENATAL VITAMIN PO SCH (09:25)
[2016-07-12] MEDS: NORCO 5/325 PO PRN ×3 (09:28→22:07)
[2016-07-12] MEDS: MOTRIN PO PRN ×3 (09:29→22:08)
[2016-07-12 09:58] LABS: Hematocrit 23.3 % (30.3-42.9)
[2016-07-12] MEDS: FEOSOL PO SCH ×2 (12:19→22:06)
[2016-07-12] MEDS: COLACE PO SCH ×2 (12:22→22:06)
[2016-07-13] MEDS: FEOSOL PO SCH ×2 (10:33→22:04)
[2016-07-13] MEDS: PRENATAL VITAMIN PO SCH (10:33)
[2016-07-13] MEDS: COLACE PO SCH ×2 (10:33→22:05)
[2016-07-13] MEDS: NORCO 5/325 PO PRN ×2 (10:40→15:37)
--- NOTE | 2016-07-13 10:51 | Progress Note ---
Assessment and Plan patient ambulating around room, denies s/s anemia. lochia scant, VSSAF, incision d&I. patient requests d/c home tomorrow. continue current management and anticipate d/c home tomorrow. - Patient Problems (1) delivery delivered Onset Date: 07/11/16 Current Visit: Yes Status: Acute Subjective - Subjective Date of service: 07/13/16 Principal diagnosis: postop day #2 s/p primary c/s Interval history: EDC Confirmation: 07/06/2016 Past History : 4 Term Births: 1 Premature Births: 0 Living Children: 1 Para: 1 Mult. Births: 0 Prev : 0 Prev. attempt? 0 Aborta: 2 Elect. Ab: 2 Spont. Ab: 0 Ectopics: 0 # 1 Delivery date: 10/12/2006 Weeks Gestation: 38 labor: no Delivery type: Anesthesia type: epidural Delivery location: [facility] Sex: Male weight: 6.10 Name: Wander # 2 Delivery date: 2013 Weeks Gestation: 8 Delivery type: EAB # 3 Delivery date: 2014 Weeks Gestation: 7 Delivery type: EAB Past Medical History: Reviewed history from 04/26/2015 and no changes required: Hypertension Past Surgical History: Reviewed history from 06/09/2013 and no changes required: Negative Past Surgical History Past Medical History Abnormal PAP: negative YOBANI Exposure: negative Infertility: negative Uterine Anomaly: negative Uterine Surgery (not C/S): negative Other Gynecologic Problems: negative Social Hx: Patient is single Infection History Hx of STD: none HIV Risk Eval: low risk Hepatitis B Risk Eval: low risk Personal hx. of genital herpes: no Partner hx. of genital herpes: no Rash, Viral, or Febrile illness since last LMP? no Varicella/Chicken Pox Status: Previous Disease TB Risk: no Genetic History Congenital Heart Defect: Mom: no Dad: no Mis Disease: Mom: no Dad: no Thalassemia Mom: no Dad: no Neural Tube Defect Mom: no Dad: no Down's Syndrome Mom: no Dad: no Christiano-Sachs Mom: no Dad: no Sickle Cell Disease/Trait Mom: no Dad: no Hemophilia Mom: no Dad: no Muscular Dystrophy Mom: no Dad: no Cystic Fibrosis Mom: no Dad: no Carmen Chorea Mom: no Dad: no Mental Retardation Mom: no Dad: no Fragile X Mom: no Dad: no Other Genetic/Chromosomal Disorder Mom: no Dad: no Child w/other defect Mom: no Dad: no Enviromental Exposures Xray Exposure: no Medication, drug, or alcohol use since LMP: no Chemical/Other Exposure: no Exposure to Cat Liter: no Hx of Parvovirus (Fifth Disease): no Occupational Exposure to Children: none Active Medications: None Current Allergies: No known allergies Patient reports: appetite normal, voiding normally, pain well controlled, flatus , ambulating normally, no dizzy ambulation, no nauseated [place]: doing well Objective - Vital Signs Latest vital signs: Vital Signs Temp Pulse Resp BP BP 07/13/16 10:40 20 07/13/16 09:00 98.6 F 106 H 18 105/57 07/13/16 00:00 98.4 F 67 18 112/58 07/12/16 16:00 98.5 F 52 L 16 91/48 07/12/16 15:27 20 07/12/16 15:26 20 07/12/16 12:00 98.7 F 99 H 18 101/61 Intake and Output 07/12/16 07/13/16 07/13/16 22:59 06:59 14:59 Intake Total 240 120 Output Total 300 Balance -60 120 Intake: Oral 240 120 Output: Urine 300 Void 300 Other: Total, Intake Amount 240 120 Total, Output Amount 300 # Voids Void 1 1 - Exam Breasts: Present: normal Cardiovascular: Present: Regular rate Lungs: Present: Clear to auscultation, Normal air movement Abdomen: Present: normal appearance, soft Uterus: Present: normal, firm, fundal height at umbilicus Extremities: Present: normal Deep Tendon Reflex Grade: Normal +2 Incision: Present: normal, dry, intact
[2016-07-14] MEDS: MOTRIN PO PRN ×2 (01:54→11:32)
[2016-07-14] MEDS: NORCO 5/325 PO PRN ×2 (01:55→11:33)
[2016-07-14] MEDS: COLACE PO SCH (09:56)
[2016-07-14] MEDS: PRENATAL VITAMIN PO SCH (09:59)
[2016-07-14] MEDS: FEOSOL PO SCH (09:59)
--- NOTE | 2016-07-14 11:34 | Discharge Summary ---
Providers - Providers Date of Admission: 07/11/16 03:05 Date of discharge: 07/14/16 Attending physician: SHIRLEY LIVE 07/11/16 16:13 Consult to Radiologic Technologist [CONS] Routine Reason For Exam: Primary care physician: SHIRLEY LIVE Hospitalization Reason for admission: rupture of membranes Delivery: (repeat) Incision: normal, dry, intact Other procedures: none complications: other (anemia) Discharge diagnosis: IUP at term delivered Solo baby: male Pertinent studies: d/c hct 23, asymptomatic Hospital course: Admitted with SROM at term and had repeat c/s, GBS +, post op hct 23 d/c on FeSO4 ambulating well, incision ok Condition at discharge: Good Disposition: DISCHARGED TO HOME OR SELFCARE - Discharge Diagnoses (1) 40 weeks gestation of Status: Acute (2) delivery delivered Status: Acute (3) GBS carrier Status: Acute (4) SROM (spontaneous rupture of membranes) Status: Acute (5) Anemia Status: Acute Qualifiers: Anemia type: iron deficiency Iron deficiency anemia type: inadequate dietary iron intake Vitamin B12 deficiency anemia type: V Folate deficiency anemia type: F Bone marrow failure anemia type: B Hemolytic anemia type: H Other causes of anemia: O Qualified Code(s): D50.8 - Other iron deficiency anemias Plan - Discharge Medications Prescriptions: Ferrous Sulfate [Feosol 325 MG tab] 325 mg PO BID #60 tablet Ibuprofen [Motrin 800 MG tab] 800 mg PO Q6H PRN #30 tablet PRN Reason: Pain oxyCODONE /ACETAMINOPHEN [Percocet 5/325 mg] 1 - 2 tab PO Q4H PRN #30 tablet PRN Reason: Pain, Moderate - Provider Discharge Summary Activity: no sex for 6 weeks, no heavy lifting 4 weeks, no strenuous exercise Diet: routine Additional instructions: [] Smoking cessation referral if applicable(refer to patient education folder for contact #) [] Refer to [facility]'s [facility] Booklet Call your doctor immediately for: * Fever > 100.5 * Heavy vaginal bleeding ( >1 pad per hour) * Severe persistent headache * Shortness of breath * Reddened, hot, painful area to leg or breast * Drainage or odor from incision. * Keep incision clean and dry at all times and follow doctor's instructions regarding bathing/showering - Follow up plan Follow up: SHIRLEY LIVE MD [Primary Care Provider] - 7 Days Forms: [facility] Discharge Summary
[2016-07-14 12:03] VITALS: BP 111/73
== END 2016-07-14 13:00 | disposition home or self-care (01) | DRG 765 ==
LOC: LD 03:05 → OBSVTOIN 03:05 → OB 17:57
PROVIDERS: ADMIT Obstetrics & Gynecology; ATTEND Obstetrics & Gynecology
PROC: 10D00Z1 Extraction of Products of Conception, Low, Open Approach (ICD-10-PCS; principal; 2016-07-11)
PROC: 04QY0ZZ Repair Lower Artery, Open Approach (ICD-10-PCS; 2016-07-11)
DX: O99.824 Streptococcus B carrier state complicating childbirth (principal); Z68.41 Body mass index [BMI] 40.0-44.9, adult; S35.53 Injury of uterine artery or vein; O76 Abnormality in fetal heart rate and rhythm complicating labor and delivery; O99.02 Anemia complicating childbirth; O99.284 Endocrine, nutritional and metabolic diseases complicating childbirth; E03.9 Hypothyroidism, unspecified; O99.214 Obesity complicating childbirth; O42.02 Full-term premature rupture of membranes, onset of labor within 24 hours of rupture; Z3A.40 40 weeks gestation of pregnancy; Z37.0 Single live birth
CPT/HCPCS: 36415; 85014; 85018; 85025; 86592; 86850; 86900; 86901; 90471; 90715; 99211; A6250; G0463; J0290; J0595; J0690; J1200; J1885; J2270; J2405; J2590; J2765; J3010; J7030; J7120; J7121; Q0177

== ENCOUNTER 2016-12-18 14:49 | Inpatient (IN) | payer MEDICAID, OTHER ==
[2016-12-18 15:51] LABS: Basophils % (Auto) 0.7 % (0.0-1.8); Eosinophils % (Auto) 1.7 % (0.0-4.3); Hematocrit 29.7 % (30.3-42.9); Hemoglobin 9.1 gm/dl (10.1-14.3); Mean Corpuscular HGB Conc 31 % (30-34); Mean Corpuscular Volume 72 fl (79-97); Platelet Count 344 K/mm3 (140-440); Red Blood Count 4.13 M/mm3 (3.65-5.03); Red Cell Distribution Width 19.1 % (13.2-15.2); White Blood Count 8.7 K/mm3 (4.5-11.0)
[2016-12-18 15:59] LABS: Mean Corpuscular Hemoglobin 22 pg (28-32)
--- NOTE | 2016-12-18 18:42 | Ultrasound Report ---
FINAL REPORT PROCEDURE: Transabdominal pelvic ultrasound. TECHNIQUE: Real-time transabdominal sonography in multiple planes of pelvis was performed with image documentation. This examination was performed without Doppler. Vascular abnormalities, including ovarian torsion, will not be detectable without Doppler evaluation. CPT 99569 HISTORY: Vaginal bleeding, , possibly passed fetus per patient. COMPARISON: No prior studies are available for comparison. FINDINGS: Image quality is limited by the patient's obesity and the lack of a fully distended bladder. The uterus measures 12.1 centimeters x 6.8 centimeters x 7.8 centimeters. The myometrium appears normal. The endometrium is poorly defined. There may be a small amount of fluid within the fundal portion of the endometrium. A definite gestational sac is not visualized. This should be better evaluated with transvaginal imaging. There is a small cyst in the right ovary. This measures 2.6 centimeters in maximum dimension. The left ovary is not visualized. There is no fluid in the cul-de-sac. IMPRESSION: Question small fluid collection in the endometrial canal. Small right ovarian cyst.
--- NOTE | 2016-12-18 18:48 | Ultrasound Report ---
FINAL REPORT PROCEDURE: Transvaginal pelvic ultrasound. TECHNIQUE: Real-time transvaginal sonography in multiple planes of the pelvis was performed with image documentation. This examination was performed without Doppler. Vascular abnormalities, including ovarian torsion, will not be detectable without Doppler evaluation. CPT 39009 HISTORY: Vaginal bleeding, , possibly passed fetus per patient. COMPARISON: No prior studies are available for comparison. FINDINGS: The uterus measures 12.1 centimeters x 6.8 centimeters x 7.8 centimeters. The myometrium appears uniform. There may be some soft tissue within the endocervical canal. This measures approximately 2.7 centimeters x 1.3 centimeters. There is a small amount of fluid within the fundal portion of the endometrium. This does not look like a normal gestational sac. The findings may represent a spontaneous . An ectopic is not entirely excluded. The left ovary is not visualized. The right ovary contains a small cyst. IMPRESSION: No evidence of normal intrauterine . Question soft tissue within the endocervical canal.
--- NOTE | 2016-12-18 21:07 | Emergency Department Report ---
HPI - General Chief Complaint: Vaginal Bleeding Time Seen by Provider: 12/18/16 20:48 - HPI HPI: Room 25 The patient is a 31-year-old female presenting with a chief complaint of "I had a miscarriage." The patient states she had a positive home tests but has not yet seen an GUEST SERVICES COORDINATOR for this . The patient states yesterday she started having vaginal bleeding then today while at work the bleeding became heavy she passed multiple clots. Patient states she does not believe she passed any tissue multiple large blood clots. Patient originally had no pain but now she is developed some abdominal cramping. The patient is a crepitus or a 6/10 Location: Pelvis Duration: Intermittent Since yesterday Quality: Cramping Severity: [See above] Modifying factors: [see above] Context: [see above] Mode of transportation: Patient drove herself to the emergency department and there are no visitors present ED Past Medical Hx - Past Medical History Previous Medical History?: Yes Hx Hypertension: Yes Additional medical history: hypothyriod, anxiety attacks - Surgical History Past Surgical History?: Yes Additional Surgical History: c section - Family History Family history: no significant - Social History Smoking Status: Never Smoker Substance Use Type: None - Medications Home Medications: Home Medications Medication Instructions Recorded Confirmed Last Taken Type Ferrous Sulfate [Feosol 325 MG tab] 325 mg PO BID #60 tablet 07/11/16 Unknown Rx Ibuprofen [Motrin 800 MG tab] 800 mg PO Q6H PRN #30 tablet 07/11/16 Unknown Rx oxyCODONE /ACETAMINOPHEN [Percocet 1 - 2 tab PO Q4H PRN #30 tablet 07/11/16 Unknown Rx 5/325 mg] ED Review of Systems ROS: Stated complaint: POSSIBLE MISCARRIAGE Other details as noted in HPI Comment: All other systems reviewed and negative Constitutional: denies: chills, fever Eyes: denies: eye pain, eye discharge, vision change ENT: denies: ear pain, throat pain Respiratory: denies: cough, shortness of breath, wheezing Cardiovascular: denies: chest pain, palpitations Endocrine: no symptoms reported Gastrointestinal: abdominal pain Genitourinary: abnormal menses Musculoskeletal: denies: back pain, joint swelling, arthralgia Skin: denies: rash, lesions Neurological: denies: headache, weakness, paresthesias Psychiatric: denies: anxiety, depression Hematological/Lymphatic: denies: easy bleeding, easy bruising Physical Exam - Physical Exam Vital Signs: Vital Signs 12/18/16 15:04 Temperature 98.5 F Pulse Rate 95 H Respiratory 18 Rate Blood Pressure 115/75 O2 Sat by Pulse 100 Oximetry Physical Exam: GENERAL: The patient is well-developed well-nourished female lying on stretcher not appearing to be in acute distress. [] HEENT: Normocephalic. Atraumatic. Extraocular motions are intact. Patient has moist mucous membranes. NECK: Supple. Trachea midline CHEST/LUNGS: Clear to auscultation. There is no respiratory distress noted. HEART/CARDIOVASCULAR: Regular. There is no tachycardia. There is no gallop rub or murmur. ABDOMEN: Abdomen is soft, with mild discomfort to palpation suprapubic and right lower quadrant. Patient has normal bowel sounds. There is no abdominal distention. SKIN: There is no rash. There is no edema. There is no diaphoresis. NEURO: The patient is awake, alert, and oriented. The patient is cooperative. The patient has normal speech MUSCULOSKELETAL: There is no evidence of acute injury. PELVIC: Large amount of clots in the vaginal vault. Clots removed but the vaginal vault quickly refills with bright red blood. This blood soaked up with gauze but gradually returns ED Course Vital Signs 12/18/16 15:04 Temperature 98.5 F Pulse Rate 95 H Respiratory 18 Rate Blood Pressure 115/75 O2 Sat by Pulse 100 Oximetry - Consultations Consultation #1: 12/18/16 21:26 GUEST SERVICES COORDINATOR paged 12/18/16 21:[address] Shawn Red- requests patient be given Cytotec 800 g rectally in addition to IV fluids and she will evaluate the patient ED Medical Decision Making - Lab Data Result diagrams: 12/18/16 15:26 Laboratory Tests 12/18/16 12/18/16 12/18/16 15:26 15:26 15:26 WBC 8.7 RBC 4.13 Hgb 9.1 L Hct 29.7 L MCV 72 L MCH 22 L MCHC 31 RDW 19.1 H Plt Count 344 Lymph % (Auto) 19.0 [place] % (Auto) 7.5 H Eos % (Auto) 1.7 Baso % (Auto) 0.7 Lymph # 1.6 [place] # 0.6 Eos # 0.1 Baso # 0.1 Seg Neutrophils % 71.1 H Seg Neutrophils # 6.2 HCG, Quant 5737 H Blood Type O POSITIVE Antibody Screen Negative - Radiology Data Radiology results: report reviewed (pelvic ultrasound), image reviewed (pelvic ultrasound) Pelvic ultrasound (rubber radiologist)-no evidence of normal intrauterine . Question soft tissue within the endocervical canal. - Differential Diagnosis spontaneous , missed , incomplete , ectopic pregnan Critical care attestation.: If time is entered above; I have spent that time in minutes in the direct care of this critically ill patient, excluding procedure time. ED Disposition Clinical Impression: Spontaneous Disposition: OP ADMIT IP TO THIS HOSP Is pt being admited?: Yes Does the pt Need Aspirin: No Condition: Fair Referrals: PRIMARY CARE, [Primary Care Provider] - 3-5 Days Time of Disposition: 00:27
[2016-12-18] MEDS ORDERED: CYTOTEC PR ONE (21:48)
[2016-12-18] MEDS ORDERED: NACL 0.9% 1000 ML 1,000 ML IV ONE (21:49)
[2016-12-18] MEDS ORDERED: TYLENOL PO ONE (21:52)
[2016-12-18] MEDS ORDERED: ZOFRAN IV PRN (23:39)
[2016-12-18] MEDS ORDERED: MORPHINE IV PRN (23:39)
[2016-12-18] MEDS ORDERED: PERCOCET 5/325 PO PRN (23:39)
[2016-12-18] MEDS ORDERED: D5LR 1,000 ML IV SCH (23:45)
--- NOTE | 2016-12-19 00:57 | Short Stay Summary ---
Short Stay Documentation Date of service: 12/19/16 Narrative H&P: 31y/o @ 7 weeks tiago presents with vaginal bleeding and passage of clots at work. She denies any precipitating event. She presented to the ED with continued vaginal bleeding. Ultrasound demonstrated a small suspected gestational sac without a pole and soft tissue in the endocervical canal. The patient was given cytotec in the ED. She was admitted for observation. Her bleeding improved overnight. The pelvic ultrasound was repeated. The sac that was previously demonstrated resolved. The endometrium length wnl. The patient was discharged home on iron therapy. - History Principal diagnosis: Spontaneous Past Medical History: hypothyroidism Past Surgical History: Social history: - Allergies and Medications Current Medications: Allergies No Known Allergies Allergy (Verified 02/06/16 10:21) Home Medications Medication Instructions Recorded Confirmed Last Taken Type Ferrous Sulfate [Feosol 325 MG tab] 325 mg PO BID #60 tablet 07/11/16 Unknown Rx Ibuprofen [Motrin 800 MG tab] 800 mg PO Q6H PRN #30 tablet 07/11/16 Unknown Rx oxyCODONE /ACETAMINOPHEN [Percocet 1 - 2 tab PO Q4H PRN #30 tablet 07/11/16 Unknown Rx 5/325 mg] Active Medications Dextrose/Lactated Ringer's (D5lr) 1,000 mls @ 125 mls/hr IV DIRECT CESAR Morphine Sulfate (Morphine) 2 mg IV Q4H PRN PRN Reason: Pain, Moderate (4-6) Ondansetron HCl (Zofran) 4 mg IV Q8H PRN PRN Reason: Nausea And Vomiting Oxycodone/Acetaminophen (Percocet 5/325) 2 tab PO Q4H PRN PRN Reason: Pain, Moderate (4-6) - Physical exam General appearance: mild distress Integumentary: no rash HEENT: Atraumatic Lungs: Clear to auscultation Breasts: deferred Heart: Regular rate Gastrointestinal: normal Female Genitourinary: deferred - Disposition Condition at discharge: Good Disposition: DC-01 TO HOME OR SELFCARE Short Stay Discharge Plan Activity: other (pelvic rest for one week) Diet: regular Additional Instructions: Return for worsening of bleeding or pain Prescriptions: Docusate Sodium [Colace] 100 mg PO BID PRN #60 capsule PRN Reason: Constipation Ferrous Sulfate [Feosol 325 MG tab] 325 mg PO BID #60 tablet Ibuprofen [Motrin] 800 mg PO Q8HR PRN #60 tablet PRN Reason: Pain oxyCODONE /ACETAMINOPHEN [Percocet 5/325] 1 tab PO Q6HR PRN #20 tablet PRN Reason: Pain Sulfamethoxazole/Trimethoprim [Bactrim DS TAB] 1 each PO BID #10 tablet
[2016-12-19] MEDS ORDERED: NACL 0.9% 1000 ML 1,000 ML ONE (01:47)
[2016-12-19 05:43] LABS: Hematocrit 22.7 % (30.3-42.9); Hemoglobin 7.1 gm/dl (10.1-14.3)
[2016-12-19] MEDS ORDERED: D5LR 500 ML IV SCH (10:00)
[2016-12-19 11:07] LABS: Bacteria,Urine 4+ /HPF (Negative); Bilirubin,Urine NEG (Negative); Blood,Urine LG (Negative); Ketones,Urine NEG (Negative); Leukocyte Esterase,Urine LG (Negative); Nitrite,Urine NEG (Negative); Urobilinogen,Urine < 2.0 mg/dL (<2.0)
[2016-12-19 11:13] LABS: RBC,Urine > 182.0 /HPF (0.0-6.0); WBC,Urine > 182.0 /HPF (0.0-6.0)
--- NOTE | 2016-12-19 14:25 | Ultrasound Report ---
ULTRASOUND PELVIC COMPLETE ULTRASOUND TRANSVAGINAL HISTORY: Incomplete . TECHNIQUE: Transabdominal and transvaginal ultrasound with color and spectral doppler interrogation. Compared to 12/18/16. The uterus measures 14 x 6 x 7 cm. No uterine fibroids are appreciated. The endometrium is poorly visualized on transvaginal imaging secondary to a retroflexed uterus. The endometrium measures 7 mm on transvaginal imaging. The previously described soft tissue within the endocervical canal is no longer visualized and has presumably passed. The ovaries are normal size, contour and echotexture. A 2 cm cyst is suggested in the right ovary. There is trace pelvic fluid which appears physiologic. IMPRESSION: The previously described soft tissue echogenicity within the endocervical canal is no longer seen. The endometrium is unremarkable measuring 7 mm in thickness. 2 cm right ovarian cyst.
[2016-12-19 17:24] VITALS: BP 100/62
== END 2016-12-19 16:20 | disposition home or self-care (01) | DRG 779 ==
LOC: ED 14:49 → OB 23:39
PROVIDERS: ADMIT Obstetrics & Gynecology; ATTEND Obstetrics & Gynecology
DX: O03.9 Complete or unspecified spontaneous abortion without complication (principal); E03.9 Hypothyroidism, unspecified; F41.9 Anxiety disorder, unspecified
CPT/HCPCS: 36415; 76801; 76817; 76830; 76856; 81001; 84702; 85014; 85018; 85025; 86850; 86900; 86901; J7030; J7121

== ENCOUNTER 2017-09-17 18:15 | Emergency (ER) | payer MEDICAID | END 2017-09-17 18:28 | disposition left against medical advice (07) | LOC: ED 18:15 | DX: R00.1 Bradycardia, unspecified (principal); Z53.21 Procedure and treatment not carried out due to patient leaving prior to being seen by health care provider ==